=== PATIENT | female | born 1930 | race Caucasian/White ===

== ENCOUNTER 2018-05-06 15:16 | Inpatient (IN) | payer OTHER ==
[~2018-05-06] VITALS: Ht 170.2 cm; Wt 56.0 kg
[~2018-05-06 15:16] MED LIST: ACETAMINOPHEN500 M4 PO; AMITRIPTYLINE H25 M2 PO; AMLODIPINE BESYL5 M1 PO; ATORVASTATIN CA10 M1 PO; DOXAZOSIN MESYLA1 M1 PO; GABAPENTIN100 M2 PO; HYDROCHLOROTH12.5 M2 PO; KEFLEX250 M1 PO; METOPROLOL TART50 M1 PO; POTASSIUM CHLO20 ME2 PO; PRAVASTATIN SOD40 M2 PO; PREDNISONE5 M1 PO; TOBRADEX EYE O3.5 GM OPH
[2018-05-06] MEDS ORDERED: STOOL SOFTENER100 M3 PO (15:32)
[2018-05-06] MEDS ORDERED: PROBIOTIC1 EACH PO (15:33)
--- NOTE | 2018-05-06 15:55 | ED AMS/SEIZURE/WEAK/DIZZY ---
History of Present Illness General Chief Complaint: Altered Mental Status Stated Complaint: BIBA AMS Source: patient, family, EMS Exam Limitations: confusion Vital Signs & Intake/Output Vital Signs & Intake/Output Vital Signs Date Time Temp Pulse Resp B/P B/P Pulse O2 O2 Flow FiO2 Mean Ox Delivery Rate 05/086 98.8 88 18 144/52 98 Room Air 05/08 2018 144/52 05/08 1457 97.3 91 20 112/60 96 05/08 0936 84 122/70 05/08 0936 83 122/70 05/08 0711 97.7 94 18 138/62 97 Room Air ED Intake and Output 05/08 0000 05/07 1200 Intake Total 780 225 Output Total 900 700 Balance -120 -475 Intake, IV 10 Intake, Oral 780 215 Output, Urine 900 700 Patient 121 lb Weight Weight Bed scale Measurement Method Allergies Coded Allergies: nitrofurantoin (DIARRHEA AND SYNCOPE 07/21/17) Reconcile Medications Amlodipine Besylate 5 MG TABLET 1 TAB PO DAILY HTN (Reported) Atorvastatin Calcium 10 MG TABLET 1 TAB PO DAILY CHOLESTEROL (Reported) Docusate Sodium (Stool Softener) 100 MG CAPSULE 1 CAP PO DAILY CONSTIPATION ( Reported) Doxazosin Mesylate 1 MG TABLET 1 TAB PO DAILY BP (Reported) Gabapentin 100 MG CAPSULE 1 CAP PO TID TREMORS (Reported) Hydrochlorothiazide 12.5 MG TABLET 1 TAB PO DAILY DIURETIC (Reported) Lactobacillus Acidophilus (Probiotic) 10 BILLION CELL CAPSULE 1 CAP PO DAILY GI (Reported) Metoprolol Tartrate 50 MG TABLET 1 TAB PO BID HTN (Reported) Potassium Chloride 20 MEQ TAB.ER.PRT 1 TAB PO DAILY SUPPLEMENT (Reported) Prednisone 5 MG TABLET 1 TAB PO DAILY PMR (Reported) Triage Note: PT BIBA FROM HOME FOR LETHARGY, AMS. PT LIVES ALONE, SON LAST SAW PT ON SUNDAY AND PT WAS "NORMAL". SON SAW PT TODAY AND PT WAS ONLY ALERT TO SELF. WAS UNABLE TO AMBULATE AND LETHARGIC PER SON. PT ARRIVES TO ED ALERT TO SELF ONLY. PT DENIES ANY FALLING. SON AT BEDSIDE. VSS. AWAITING PROVIDER EVAL. Triage Nurses Notes Reviewed? yes Onset: Gradual Duration: hour(s): Timing: unknown Injury Environment: home Severity: moderate HPI: 87-year-old female with history of hypertension, UTIs BIBA to ED for AMS. HPI is limited due to patient's confusion, HPI obtained from patient's son. Son states that he saw the patient Sunday night at which time she was in her usual state of health. Son states the patient called him this morning and was not making sense over the phone. Son went to the patient's house and she was confused, lethargic, could not get out of bed or walk. Patient walks with a walker at baseline and lives at home alone, she is independent. Son states that she sees Dr. Lutz regularly for frequent UTIs, the patient had asked her son to pick her up some urine cups for urine sample last week. The patient does endorse dysuria at this time. Son denies hx of recent fall. (Courtney Washington) Past History Travel History Traveled to [place] past 21 day No Medical History Any Pertinent Medical History? see below for history Neurological: tremors Cardiovascular: hypertension Musculoskeletal: osteoporosis Surgical History Surgical History: non-contributory Psychosocial History What is your primary language Sami Tobacco Use: Never used Family History Hx Contributory? No (Courtney Washington) Review of Systems Review of Systems Constitutional: Reports: see HPI. Genitourinary: Reports: see HPI. Comments ROS limited d/t patient's confusion (Courtney Washington) Physical Exam Physical Exam General Appearance: well developed/nourished, no apparent distress, alert, awake Head: atraumatic, normal appearance Eyes: Bilateral: normal appearance, PERRL, EOMI. Ears, Nose, Throat: normal pharynx, hearing grossly normal Neck: normal inspection, supple, full range of motion Respiratory: normal breath sounds, no respiratory distress, lungs clear Cardiovascular: regular rate/rhythm Gastrointestinal: normal bowel sounds, soft, non-tender, no organomegaly Back: normal inspection, normal range of motion Extremities: normal range of motion Neurologic/Psych: awake, alert, patient service specialist II-XII nml as tested, oriented to person and place, not time, +tremor of bilateral upper extremities Skin: intact, normal color, warm/dry Core Measures ACS in differential dx? Yes CVA/TIA Diagnosis No Sepsis Present: No Sepsis Focused Exam Completed? No (Courtney Washington) Progress Differential Diagnosis: arrythmia, anemia, CVA/stroke, dehydration, encephalitis , electrolyte imbalance, hypoglycemia, hypoxia, intracranial Hem., intracranial mass/tumor, pneumonia, sepsis, seizure disorder, subarachnoid Hem., UTI/pyelo Plan of Care: Orders Procedure Date/time Status PT Evaluate & Treat 05/08 UNK Active PT EVAL LOW COMPLEX 20 MIN 05/08 UNK Complete Straight Cath 05/08 UNK Active Current Medications Sig/Andrew Start time Last Medication Dose Stop Time Status Admin Ampicillin 500 MG Q6 05/09 0600 AC (Omnipen) Apixaban 2.5 MG BID 05/08 2100 AC 05/08 (Eliquis) 2018 Melatonin 5 MG AT BEDTIME PRN 05/08 1345 AC (Melatonin) Amlodipine Besylate 5 MG DAILY 05/07 0900 AC 05/08 (Norvasc) 0936 Atorvastatin Calcium 10 MG DAILY 05/07 0900 AC 05/08 (Lipitor) 0936 Doxazosin Mesylate 1 MG DAILY 05/07 0900 AC 05/08 (Cardura) 0936 Gabapentin 100 MG TID 05/07 0900 AC 05/08 (Neurontin) 2018 Metoprolol Tartrate 50 MG BID 05/07 0900 AC 05/08 (Lopressor) 2018 Potassium Chloride 20 MEQ DAILY 05/07 0900 AC 05/08 (K-Dur) 0936 Prednisone 5 MG DAILY 05/07 0900 AC 05/08 0936 Acetaminophen 650 MG Q8P PRN 05/06 2130 AC 05/08 (Tylenol) 2130 Laboratory Tests 05/08/18 0609: TSH 1.650 EKGs shows new onset atrial fibrillation. Heart rate has been less than 100. Labs are significant for a UTI. Patient's CT scan of head shows no acute abnormality, chest x-ray is stable, no acute pathology. Given the pages altered mental status with urine infection and atrial fibrillation trochars hospital stay for IV antibiotics, fluids, cardiology consult, telemetry monitoring, trend EKGs and troponins, follow-up with urine and blood cultures. His unlikely this patient will fully recover within 2 days. Spoke with degreasing solution reclaimer grinder set up operator gear tool Dr. Stuart. Will hold heparinization at this time given this patient's AMS. a fib may be related to UTI. Dr. Mendosa spoke with Dr. Thakur regarding this patient's telemetry admission. Diagnostic Imaging: Viewed by Me: Radiology Read, CT Scan. Discussed w/RAD: Radiology Read, CT Scan. Radiology Impression: PATIENT: JAYNA VANN PRESENT AGE: 87 PATIENT ACCOUNT NO: [id number] : [birth year] LOCATION: [facility] ORDERING PHYSICIAN: Courtney BERNAL SERVICE DATE: 05/06/18 EXAM TYPE: CAT - CT HEAD WO IV CONTRAST EXAMINATION: CT HEAD WITHOUT CONTRAST CLINICAL INFORMATION: Altered mental status COMPARISON: CT head 07/21/2017 TECHNIQUE: Contiguous axial imaging was performed from the skull base to vertex without intravenous administration of contrast. DLP: 619.49 mGy-cm FINDINGS: There is no evidence of acute intracranial hemorrhage or territorial infarction. No abnormal mass effect or midline shift is seen. Miller to white matter differentiation is well preserved. No extra-axial fluid collections are identified. There is atrophy with prominence of the ventricles and the sulci and hypodensity of the periventricular white matter due to chronic small vessel ischemic disease. There is vascular calcifications of the internal carotid arteries bilaterally. The osseous structures and soft tissues are normal. The mastoid air cells and visualized portions of the paranasal sinuses are well aerated. IMPRESSION: No acute intracranial pathology. DICTATED BY: Amador Freitas MD DATE/TIME DICTATED:1611 IT PROGRAMMER:STEVO DATE/TIME TRANSCRIBED:05/06/181611 CONFIDENTIAL, DO NOT COPY WITHOUT APPROPRIATE AUTHORIZATION. <Electronically signed in Other Vendor System> SIGNED BY: Amador Freitas MD 05/06/181627 CXR Impression: PATIENT: JAYNA VANN PRESENT AGE: 87 PATIENT ACCOUNT NO: [id number] : [birth year] LOCATION: [facility] ORDERING PHYSICIAN: Courtney BERNAL SERVICE DATE: 05/06/18 EXAM TYPE: RAD - XRY-CHEST XRAY, TWO VIEWS EXAMINATION: XR CHEST CLINICAL INFORMATION: Acute mental status change. Rule out pneumonia/effusion. COMPARISON: Chest x-ray dated 07/21/2017 and several older exams. TECHNIQUE: 2 views of the chest were obtained. FINDINGS : The cardiomediastinal silhouette is within normal limits in size. Calcification of the aortic arch is seen. Lungs bilaterally are symmetrically hyperinflated with thickening of the central airways and perihilar opacities seen, unchanged from prior studies when allowing for differences in technique. Findings are consistent with chronic obstructive lung disease. No focal consolidation, effusion or pneumothorax is seen. Diffuse osteopenia is noted with mild convex left thoracolumbar scoliosis. IMPRESSION: Findings are consistent with obstructive lung disease. No focal pneumonia or pleural effusion. DICTATED BY: Mary Goodson MD DATE/TIME DICTATED:05/06/181630 IT PROGRAMMER:STEVO DATE/TIME TRANSCRIBED:05/06/181630 CONFIDENTIAL, DO NOT COPY WITHOUT APPROPRIATE AUTHORIZATION. <Electronically signed in Other Vendor System> SIGNED BY: Mary Goodson MD 05/06/181636 Initial ED EKG: atrial fibrillation rate 95bpm, nonspecific ST changes Prior EKG: changed (07/21/17) (Courtney Washington) Departure Departure Disposition: STILL A PATIENT Condition: Stable Clinical Impression Primary Impression: New onset atrial fibrillation Secondary Impressions: Altered mental status Qualifiers: Altered mental status type: unspecified Qualified Code: R41.82 - Altered mental status, unspecified UTI (urinary tract infection) Qualifiers: Urinary tract infection type: acute cystitis Hematuria presence: without hematuria Qualified Code: N30.00 - Acute cystitis without hematuria Referrals: Osman Thakur MD (PCP/Family) Departure Forms: Customer Survey General Discharge Information Admission Note Spoke With: Osman Thakur MD Documentation of Exam: Documentation of any treatments & extenuating circumstances including Concerns Regarding Discharge (functional status, medication knowledge or non-compliance, living conditions, etc.) that warrant an admission rather than observation: [UTI with altered mental status requiring IV antibiotics, new onset atrial fibrillation according cardiology consult, telemetry monitoring, trend EKGs and troponins, follow-up with urine and blood cultures, premature discharge medically unsafe] (Courtney Washington) PA/WET PRESS TENDER Co-Sign Statement Statement: ED Attending supervision documentation- x I saw and evaluated the patient. I have also reviewed all the pertinent lab results and diagnostic results. I agree with the findings and the plan of care as documented in the PA's/WET PRESS TENDER's documentation. Altered mental status, lethargy with new onset afib, UTI [] I have reviewed the ED Record and agree with the PA's/WET PRESS TENDER's documentation. [] Additions or exceptions (if any) to the PAs/WET PRESS TENDER's note and plan are summarized below: [] (Korey OLIVIA,Chidi)
[2018-05-06 16:09] LABS: ABSOLUTE BASOPHIL COUNT 0 /CUMM (0.0-0.2); ABSOLUTE EOSINOPHIL COUNT 0 /CUMM (0.0-0.7); ABSOLUTE GRANULOCYTE CT 5.9 /CUMM (1.4-6.5); ABSOLUTE LYMPH COUNT 1.2 /CUMM (1.2-3.4); ABSOLUTE MONOCYTE COUNT 0.7 /CUMM (0.10-0.60); BASOPHIL % 0.3 % (0.0-2.0); EOSINOPHIL % 0.3 % (0-5); GRANULOCYTE % 74.9 % (42.2-75.2); HEMATOCRIT 44.2 % (37-47); MEAN CORPUSCULAR HGB 32.5 PG (27.0-31.0); MEAN CORPUSCULAR HGB CONC 33.7 G/DL (33.0-37.0); MEAN CORPUSCULAR VOLUME 96.5 FL (81.0-99.0); MEAN PLATELET VOLUME 6.8 FL (7.4-10.4); PLATELET COUNT 316 /CUMM (130-400); RBC DISTRIBUTION WIDTH 13.2 % (11.5-14.5); RED BLOOD CELL CT 4.59 /CUMM (4.20-5.40); WHITE BLOOD CELL COUNT 7.9 /CUMM (4.8-10.8)
--- NOTE | 2018-05-06 16:28 | CT SCAN REPORT ---
EXAMINATION: CT HEAD WITHOUT CONTRAST CLINICAL INFORMATION: Altered mental status COMPARISON: CT head 07/21/2017 TECHNIQUE: Contiguous axial imaging was performed from the skull base to vertex without intravenous administration of contrast. DLP: 619.49 mGy-cm FINDINGS: There is no evidence of acute intracranial hemorrhage or territorial infarction. No abnormal mass effect or midline shift is seen. Miller to white matter differentiation is well preserved. No extra-axial fluid collections are identified. There is atrophy with prominence of the ventricles and the sulci and hypodensity of the periventricular white matter due to chronic small vessel ischemic disease. There is vascular calcifications of the internal carotid arteries bilaterally. The osseous structures and soft tissues are normal. The mastoid air cells and visualized portions of the paranasal sinuses are well aerated. IMPRESSION: No acute intracranial pathology.
--- NOTE | 2018-05-06 16:37 | RADIOLOGY REPORT ---
EXAMINATION: XR CHEST CLINICAL INFORMATION: Acute mental status change. Rule out pneumonia/effusion. COMPARISON: Chest x-ray dated 07/21/2017 and several older exams. TECHNIQUE: 2 views of the chest were obtained. FINDINGS: The cardiomediastinal silhouette is within normal limits in size. Calcification of the aortic arch is seen. Lungs bilaterally are symmetrically hyperinflated with thickening of the central airways and perihilar opacities seen, unchanged from prior studies when allowing for differences in technique. Findings are consistent with chronic obstructive lung disease. No focal consolidation, effusion or pneumothorax is seen. Diffuse osteopenia is noted with mild convex left thoracolumbar scoliosis. IMPRESSION: Findings are consistent with obstructive lung disease. No focal pneumonia or pleural effusion.
[2018-05-06 16:51] LABS: PT 13.3 SEC (9.4-12.5); PTT 31 SEC (25-37)
--- NOTE | 2018-05-06 19:44 | History & Physical ---
General Information and HPI MD Statement: I have seen and personally examined JAYNA VANN and documented this H&P. The patient is a 87 year old F who presented with a patient stated chief complaint of []. Allergies/Medications Allergies: Coded Allergies: nitrofurantoin (DIARRHEA AND SYNCOPE 07/21/17) Home Med list Amlodipine Besylate 5 MG TABLET 1 TAB PO DAILY HTN (Reported) Atorvastatin Calcium 10 MG TABLET 1 TAB PO DAILY CHOLESTEROL (Reported) Docusate Sodium (Stool Softener) 100 MG CAPSULE 1 CAP PO DAILY CONSTIPATION ( Reported) Doxazosin Mesylate 1 MG TABLET 1 TAB PO DAILY BP (Reported) Gabapentin 100 MG CAPSULE 1 CAP PO TID TREMORS (Reported) Hydrochlorothiazide 12.5 MG TABLET 1 TAB PO DAILY DIURETIC (Reported) Lactobacillus Acidophilus (Probiotic) 10 BILLION CELL CAPSULE 1 CAP PO DAILY GI (Reported) Metoprolol Tartrate 50 MG TABLET 1 TAB PO BID HTN (Reported) Potassium Chloride 20 MEQ TAB.ER.PRT 1 TAB PO DAILY SUPPLEMENT (Reported) Prednisone 5 MG TABLET 1 TAB PO DAILY PMR (Reported) Past History Travel History Traveled to [place] past 21 day No Medical History Neurological: tremors Cardiovascular: hypertension Musculoskeletal: osteoporosis Surgical History Surgical History: non-contributory Assessment/Plan Assessment: HEAD CT: No acute intracranial pathology. CXR: Findings are consistent with obstructive lung disease. No focal pneumonia or pleural effusion. Core Measures/Misc (06/10) Sepsis (View protocol) If YES complete Sepsis Event Note If YES complete Sepsis Event Note
--- NOTE | 2018-05-06 20:23 | History & Physical ---
Zamzam Coates 05/06/182022: General Information and HPI History of Present Illness: Patient is a 87 year old female with past medical history of hypertension, recurrent UTIs who presented to ED when found by her sun to be disoriented and unable to get out of bed. Patient was in her usual state of health until 1230PM this afternoon 05/06/18 where her son noticed she was not able to get out of bed. Patient was described to be shaking at that time which is increased compared to her normal tremors. The son described the patient to be significantly disoriented from her baseline and states she is normally very sharp. Family membors stated she had possible slurring of speech at home but no facial droop or weakness noticed. Patient lives at home alone and is independent at baseline using a walker at home. No family history of strokes. Patient never used tobacoo or alcohol. Review of systems positive for chills, shaking, dizziness, dysuria and frequency. Otherwise, patient denied any chest pain, palpitations, shortness of breath, bowel or bladder incontinence, nausea or vomiting. Allergies/Medications Allergies: Coded Allergies: nitrofurantoin (DIARRHEA AND SYNCOPE 07/21/17) Home Med list Amlodipine Besylate 5 MG TABLET 1 TAB PO DAILY HTN (Reported) Atorvastatin Calcium 10 MG TABLET 1 TAB PO DAILY CHOLESTEROL (Reported) Docusate Sodium (Stool Softener) 100 MG CAPSULE 1 CAP PO DAILY CONSTIPATION ( Reported) Doxazosin Mesylate 1 MG TABLET 1 TAB PO DAILY BP (Reported) Gabapentin 100 MG CAPSULE 1 CAP PO TID TREMORS (Reported) Hydrochlorothiazide 12.5 MG TABLET 1 TAB PO DAILY DIURETIC (Reported) Lactobacillus Acidophilus (Probiotic) 10 BILLION CELL CAPSULE 1 CAP PO DAILY GI (Reported) Metoprolol Tartrate 50 MG TABLET 1 TAB PO BID HTN (Reported) Potassium Chloride 20 MEQ TAB.ER.PRT 1 TAB PO DAILY SUPPLEMENT (Reported) Prednisone 5 MG TABLET 1 TAB PO DAILY PMR (Reported) Past History Travel History Traveled to [place] past 21 day No Medical History Neurological: tremors Cardiovascular: hypertension Musculoskeletal: osteoporosis Surgical History Surgical History: non-contributory Past Family/Social History Psychosocial History Smoking Status: Never Smoked ETOH Use: denies use Review of Systems Review of Systems Constitutional: Denies: see HPI. Exam & Diagnostic Data Last 24 Hrs of Vital Signs/I&O Vital Signs Date Time Temp Pulse Resp B/P B/P Pulse O2 O2 Flow FiO2 Mean Ox Delivery Rate 05/06 1739 98.2 96 18 131/61 100 Room Air 05/06 1538 Room Air 05/06 1519 97.9 106 20 146/79 99 Room Air Intake & Output 05/06 1600 05/06 0800 05/06 0000 Intake Total Output Total Balance Patient 150 lb Weight Weight Estimated Measurement Method Physical Exam General Appearance Alert, confused, oriented to person, shaking/tremors Skin lower extremity chronic venous changes HEENT PERRLA, EOMI, Mucous Membr. moist/pink Neck Supple, No JVD, No thryomegaly Cardiovascular Regular Rate, Normal S1, Normal S2 Lungs Clear to Auscultation, Normal Air Movement Abdomen Normal Bowel Sounds, Soft, No Tenderness Neurological Normal Speech, Strength at 5/5 X4 Ext, Normal Tone, Sensation Intact, Cranial Nerves 3-12 NL, Reflexes 2+ Extremities No Clubbing, No Cyanosis, lower extremity venous changes/right extremity swelling > right; tender to palpation Vascular Normal Pulses, Pulses Symmetrical Last 24 Hrs of Labs/Jose: Laboratory Tests 05/06/18 1842: Lactic Acid Cancelled 05/06/18 1720: Urine Color YEL, Urine Clarity CLDY H, Urine pH 6.5, Ur Specific [place] 1.020, Urine Protein TRACE H, Urine Ketones 15 H, Urine Nitrite POS H, Urine Bilirubin NEG, Urine Urobilinogen 1.0, Ur Leukocyte Esterase LARGE H, Ur Microscopic SEDIMENT EXAMINED, Urine RBC 15-25 H, Urine WBC > 75 H, Ur Epithelial Cells OCCAS, Urine Bacteria PACKD H, Urine Hemoglobin SMALL H, Urine Glucose NEG 05/06/18 1627: PT 13.3 H, INR 1.22 H, APTT 31 05/06/18 1545: Anion Gap 10, Estimated GFR > 60, BUN/Creatinine Ratio 36.0 H, Glucose 114 H, Lactic Acid 1.4, Calcium 9.6, Total Bilirubin 1.0, AST 32, ALT 45, Alkaline Phosphatase 78, Troponin I 0.01, Total Protein 7.1, Albumin 4.3, Globulin 2.8, Albumin/Globulin Ratio 1.5, CBC w Diff NO MAN DIFF REQ, RBC 4.59, MCV 96.5, MCH 32.5 H, MCHC 33.7, RDW 13.2, MPV 6.8 L, Gran % 74.9, Lymphocytes % 15.2 L, Monocytes % 9.3, Eosinophils % 0.3, Basophils % 0.3, Absolute Granulocytes 5.9, Absolute Lymphocytes 1.2, Absolute Monocytes 0.7 H, Absolute Eosinophils 0, Absolute Basophils 0 Microbiology 05/06 1720 URINE ROUT: Urine Culture - RECD Diagnostic Data EKG Results Atrial Fibrillation 95, non specific T wave changes, QTC 473 CXR Results Obstructive lung disease, no PNA or pleural effusion Assessment/Plan Assessment: Patient is a 87 year old female with PMH of hypertension, recurrent UTIs, tremors who presented to ED with her son and daughter in law for altered mental status and lethargy. Patient noted to have increased confusion, dysuria and difficulty ambulating as compared to baseline. CT imaging on admission negative for any acute intracranial pathology. CXR demonstrates some obstructive lung disease. EKG found new onset Atrial Fibrillation 95. Positive UA with clinical symptoms of dysuria. EMERGENCY DEPARTMENT: Rocepnen X 1 + NS 1 L Plaster Whittler: Dr. Stuart spoken to - hold heparinization at this time given patients AMS - a-fib possibly related to HPI; Dr. Nair spoke with Dr. Thakur regarding patients telemetry admission Vitals: 97.9, 106, 20, 146/79, 99%RA EKG: Atrial fibrillation 95, QTC 473, nonspecific T wave changes Troponin: CBC: WBC: 7.9, Hgb: 14.9, Hct: 44.2, Plt: 316 Chemistry: Na: 136, K+ 3.3, Cl 99, CO2 27, BUN 18, Cr 0.5 UA: Cloudy, trace protein, 15 Ketones, Positive Nitrite, Large leukocyte esterases, WBC>75, Packed urine bacteria, small hemoglobin INR: 1.22, PT: 13.[address]: No acute intracranial pathology CXR: Findings are consistent with obstructive lung disease. No focal pneumonia or pleural effusion. PROBLEM LIST: 1. Altered Mental Status 2. New onset Atrial Fibrillation 3. Urinary Tract Infection 4. Hypertension ALTERED MENTAL STATUS * Admit to telemetry for further monitoring of any arrythmia/a-fib * CT head negative; consider MRI in AM to rule out stroke and possible AC for new onset a-fib * Continue ASA + Statin * Q4 neuro-checks * Carotid dopplers NEW ONSET A-FIB * Repeat EKG/Troponin in AM * Monitor on telemetry * Cardiology consultation in AM * CHADVASC score: 4; will wait for further recommendations for anticoauglation once stroke is ruled out URINARY TRACT INFECTION * Continue Rocephin; one dose given in ER * Monitor for fevers/CBC for leukocytosis HYPERTENSION * Continue home medications * Monitor Vitals Q shift Code Status: Full Code DVT PPx: Heparin SC Diet: Regular Diet As Ranked By This Provider Problem List: 1. New onset atrial fibrillation 2. UTI (urinary tract infection) Qualifiers Urinary tract infection type: acute cystitis Hematuria presence: without hematuria Qualified Code: N30.00 - Acute cystitis without hematuria 3. Altered mental status Qualifiers Altered mental status type: unspecified Qualified Code: R41.82 - Altered mental status, unspecified Core Measures/Misc (06/10) Acute Coronary Syndrome ACS Diagnosis: No Congestive Heart Failure Congestive Heart Failure Diagnosis No Cerebrovascular Accident CVA/TIA Diagnosis: No VTE (View Protocol) VTE Risk Factors Age>40 No Mechanical VTE Prophylaxis d/t N/A MechProphylax Ordered No VTE Pharm Prophylaxis d/t NA PharmProphylax ordered Sepsis (View protocol) Sepsis Present: No If YES complete Sepsis Event Note If YES complete Sepsis Event Note Sondra Baptiste 05/06/18 2138: Core Measures/Misc (06/10) Sepsis (View protocol) If YES complete Sepsis Event Note If YES complete Sepsis Event Note Resident Review Statement Resident Statement: examined this patient, discussed with international trade teacher, agreed with international trade teacher, discussed with family Other Findings: She is 87-year-old female with past medical history significant for hypertension , recurrent UTIs, tremors, was brought in by family with a chief complaint of increased lethargy, altered mental status this morning. Patient's son was present at bedside and stated that patient was doing well when she got up this morning, she made her breakfast/lunch and went to bed. When he saw the patient later in the afternoon around 12:30 PM, she was very confused, shaking and was unable to get out of bed. Son also reports that having slight slurring of speech at that time which improved in a matter of minutes. Patient has a history of recurrent UTIs and follows up with Dr. edwards regarding that. She is not on any maintenance antibiotics. Patient reported of burning micturition, increased frequency since past couple of days, and had subjective fever and chills. On review of system, patient reported dizziness, headache, slight dyspnea, palpitations when anxious, no chest pain or abdominal discomfort. Patient also reported pain in her right lower extremity that recently started. No recent travels. Patient lives alone at home by herself and is completely independent in her daily activities. Labs and vitals as above EKG done in ER was significant for new onset A. fib, heart rate 75, nonspecific ST changes. UA was significant for greater than 75 WBCs and large leukocyte esterase. Problem list #1 urinary tract infection #2 new onset A. fib #4 increased lethargy and confusion #5 rule out stroke/TIA #6 history of hypertension #7 history of hyperlipidemia #8 rule out right lower extremity DVT Assessment and plan Patient will be admitted to telemetry floor for closer monitoring of her new onset A. fib. Dr. Baker has been called from ER we will place a formal cardiology consult. Patient is on metoprolol 50 twice a day at home, will continue the same. Her A. fib is rate controlled for now. Will defer to cardiology regarding anticoagulation once her stroke is ruled out. CT head is negative for any acute intracranial pathology, will get carotid ultrasound bilateral. Every 4 neuro checks. We'll start her on aspirin and statin. For UTI, patient got 1 dose of ceftriaxone in ER we'll continue. Patient will be continued on her home meds including HCTZ, prednisone 5 daily, K-Leilani 20 daily, amlodipine 5 daily, atorvastatin, doxazosin, gabapentin. Patient reports of new onset right lower extremity pain and swelling, will get unilateral Doppler lower extremity and follow-up. DVT prophylaxis subcutaneous heparin. Patient is DNR/DNI. Blaze OLIVIA,[facility] 05/07/18 0947: Core Measures/Misc (06/10) Sepsis (View protocol) If YES complete Sepsis Event Note If YES complete Sepsis Event Note Attending MD Review Statement Attending Statement Attending MD Statement: examined this patient, discuss w/resident/PA/SVP, agreed w/resident/PA/SVP, discussed with family, reviewed EMR data (avail), discussed with nursing, discussed with case mgmt, reviewed images, amended to note Attending Assessment/Plan: This is a lady with above-mentioned issues with history of polymyalgia rheumatica, on low-dose prednisone, recurrent UTI being followed by urology, history of hypertension, worsening performance status, osteoporosis in the past treated with Fosamax for few years, mild tremors, hyperlipidemia, hypertension on beta-colette, came in with Altered mental status probably related to urinary tract infection. No clinical evidence suggestive of stroke syndrome. 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
[2018-05-06 23:11] VITALS: BP 144/78
[2018-05-07 06:48] VITALS: BP 138/80
--- NOTE | 2018-05-07 07:20 | PN- Housestaff ---
Semaj Roa 05/07/18 0720: Subjective Follow-up For: AMS 2/2 UTI Afib Subjective: No events per nursing. Tele monitor shows Afib 88 - 115 Pt has no new complaints and is resting comfortably. She still has the left sided chest pain but it is less than yesterday, seems reproducible with movement. Review of Systems Constitutional: Reports: see HPI. Objective Last 24 Hrs of Vital Signs/I&O Vital Signs Date Time Temp Pulse Resp B/P B/P Pulse O2 O2 Flow FiO2 Mean Ox Delivery Rate 05/07 2211 97.7 98 18 150/60 97 Room Air 05/07 2038 76 128/70 05/07 1449 97.4 76 20 128/70 96 05/07 0839 142/50 05/07 0838 80 142/50 05/07 0800 Room Air Room Air 05/07 0648 97.8 80 18 138/80 97 Room Air Intake & Output 05/08 0800 05/08 0000 05/07 1600 Intake Total 300 480 Output Total 400 500 Balance -100 -20 Intake, Oral 300 480 Output, Urine 400 500 Patient 121 lb Weight Weight Bed scale Measurement Method Physical Exam General Appearance: Alert, Cooperative, No Acute Distress HEENT: Atraumatic, EOMI Neck: No JVD Cardiovascular: Normal S1, Normal S2, Irregular rhythm, Diastolic Murmur Lungs: Clear to Auscultation Abdomen: Normal Bowel Sounds, Soft, No Tenderness Extremities: No Cyanosis, No Tenderness/Swelling, Chronic Venous Stasis Dermatitis Current Medications: Current Medications Sig/Andrew Start time Last Medication Dose Route Stop Time Status Admin Acetaminophen 650 MG Q8P PRN 05/06 2130 AC 05/07 PO 0226 Amlodipine Besylate 5 MG DAILY 05/07 900 AC 05/07 PO 0839 Apixaban 5 MG BID 05/07 2100 AC 05/07 PO 203 Aspirin 81 MG DAILY 05/07 900 DC 05/07 PO 0839 Atorvastatin Calcium 10 MG DAILY 05/07 900 AC 05/07 PO 837 Ceftriaxone Sodium 1,000 MG DAILY 05/07 900 AC 05/07 IV 0839 Doxazosin Mesylate 1 MG DAILY 05/07 900 AC 05/07 PO 0839 Gabapentin 100 MG TID 05/07 900 AC 05/07 PO 203 Hydrochlorothiazide 12.5 MG DAILY 05/07 900 DC 05/07 PO 0838 Metoprolol Tartrate 50 MG BID 05/07 900 AC 05/07 PO 2037 Potassium Chloride 20 MEQ DAILY 05/07 900 AC 05/07 PO 08 Prednisone 5 MG DAILY 05/07 900 AC 05/07 PO 08 Last 24 Hrs of Lab/Jose Results Last 24 Hrs of Labs/Mics: Laboratory Tests 05/07/18 0630: Anion Gap 11, Estimated GFR > 60, BUN/Creatinine Ratio 30.0 H, CBC w Diff NO MAN DIFF REQ, RBC 4.53, MCV 96.7, MCH 32.7 H, MCHC 33.8, RDW 13.3, MPV 6.9 L, Gran % 75.5 H, Lymphocytes % 14.2 L, Monocytes % 9.6 H, Eosinophils % 0.4, Basophils % 0.3, Absolute Granulocytes 5.9, Absolute Lymphocytes 1.1 L, Absolute Monocytes 0.8 H, Absolute Eosinophils 0, Absolute Basophils 0 Assessment/Plan Assessment: Pt is an 87-year-old female with history of hypertension, recurrent UTIs who presented the emergency room disoriented and unable to get out of bed. Her son noted that she was confused with possible tremors. She is normally very active, lives alone and able to perform her normal daily activities. In the ER she was found to have a urinary tract infection but was afebrile. After starting Rocephin she is more alert. # New onset Afib: Could be due to stress of UTI. Diastolic murmur suggestive of possible MR. - Metoprolol for rate control - Echocardiogram to assess left atrial size - [id number] of 4, so started on Eliquis 5 mg BID - DC aspirin - We will continue tele - TSH to R/O thyroid disorder # Altered Mental Status: Most likely 2/2 to UTI - Continue Abx #HTN - D/C Thiazide - Cont doxazosin Order Abd U/S to r/o other pathologies Cont gabapentin Cont steroids DNR/DNI DVT ppx Problem List: 1. Altered mental status 2. UTI (urinary tract infection) 3. New onset atrial fibrillation Pain Ratin Pain Location: NA Pain Goal: Remain pain free Pain Plan: Per pathway Tomorrow's Labs & Rationales: None Osman Thakur MD 05/07/18 1013: Attending MD Review Statement Attending Statement Attending MD Statement: examined this patient, discuss w/resident/PA/NEWSCAST DIRECTOR, agreed w/resident/PA/NEWSCAST DIRECTOR, discussed with family, reviewed EMR data (avail), discussed with nursing, discussed with case mgmt, reviewed images, amended to note Attending Assessment/Plan: General Appearance Alert, confused, oriented to person, shaking/tremors Skin lower extremity chronic venous changes HEENT PERRLA, EOMI, Mucous Membr. moist/pink Neck Supple, No JVD, No thryomegaly Cardiovascular Regular Rate, Normal S1, Normal S2 Lungs Clear to Auscultation, Normal Air Movement Abdomen Normal Bowel Sounds, Soft, No Tenderness Neurological Normal Speech, Strength at 5/5 X4 Ext, Normal Tone, Sensation Intact, Cranial Nerves 3-12 NL, Reflexes 2+ Extremities No Clubbing, No Cyanosis, lower extremity venous changes/right extremity swelling > right; tender to palpation Vascular Normal Pulses, Pulses Symmetrical This is a lady with above-mentioned issues with history of polymyalgia rheumatica, on low-dose prednisone, recurrent UTI being followed by urology, history of hypertension, worsening performance status, osteoporosis in the past treated with Fosamax for few years, mild tremors, hyperlipidemia, hypertension on beta-colette, came in with * Resolving Altered mental status probably related to urinary tract infection. No clinical evidence suggestive of stroke syndrome. 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
[2018-05-07 07:42] LABS: ABSOLUTE BASOPHIL COUNT 0 /CUMM (0.0-0.2); ABSOLUTE EOSINOPHIL COUNT 0 /CUMM (0.0-0.7); ABSOLUTE GRANULOCYTE CT 5.9 /CUMM (1.4-6.5); ABSOLUTE LYMPH COUNT 1.1 /CUMM (1.2-3.4); ABSOLUTE MONOCYTE COUNT 0.8 /CUMM (0.10-0.60); BASOPHIL % 0.3 % (0.0-2.0); EOSINOPHIL % 0.4 % (0-5); GRANULOCYTE % 75.5 % (42.2-75.2); HEMATOCRIT 43.8 % (37-47); MEAN CORPUSCULAR HGB 32.7 PG (27.0-31.0); MEAN CORPUSCULAR HGB CONC 33.8 G/DL (33.0-37.0); MEAN CORPUSCULAR VOLUME 96.7 FL (81.0-99.0); MEAN PLATELET VOLUME 6.9 FL (7.4-10.4); PLATELET COUNT 285 /CUMM (130-400); RBC DISTRIBUTION WIDTH 13.3 % (11.5-14.5); RED BLOOD CELL CT 4.53 /CUMM (4.20-5.40); WHITE BLOOD CELL COUNT 7.9 /CUMM (4.8-10.8)
--- NOTE | 2018-05-07 09:32 | Cons- Cardiology ---
General Information and HPI Consulting Request Date of Consult: 05/07/18 Requested By: Blaze OLIVIA,Osman Charles Reason for Consult: New onset atrial fibrillation Source of Information: patient Exam Limitations: poor historian History of Present Illness: The patient is an 87-year-old female with history of hypertension, recurrent UTIs who presented the emergency room disoriented and unable to get out of bed. Her son noted that she was confused with possible tremors. She is normally very active, lives alone and able to perform her normal daily activities. In the ER she was found to have a urinary tract infection but was afebrile. She is placed on Rocephin and is now more awake and alert. Upon further questioning she denies any prior cardiac history other than being told of the possible murmur many years ago. She has never seen a accounting representative. She denies chest pain or shortness of breath. Allergies/Medications Allergies: Coded Allergies: nitrofurantoin (DIARRHEA AND SYNCOPE 07/21/17) Home Med List: Amlodipine Besylate 5 MG TABLET 1 TAB PO DAILY HTN (Reported) Atorvastatin Calcium 10 MG TABLET 1 TAB PO DAILY CHOLESTEROL (Reported) Docusate Sodium (Stool Softener) 100 MG CAPSULE 1 CAP PO DAILY CONSTIPATION ( Reported) Doxazosin Mesylate 1 MG TABLET 1 TAB PO DAILY BP (Reported) Gabapentin 100 MG CAPSULE 1 CAP PO TID TREMORS (Reported) Hydrochlorothiazide 12.5 MG TABLET 1 TAB PO DAILY DIURETIC (Reported) Lactobacillus Acidophilus (Probiotic) 10 BILLION CELL CAPSULE 1 CAP PO DAILY GI (Reported) Metoprolol Tartrate 50 MG TABLET 1 TAB PO BID HTN (Reported) Potassium Chloride 20 MEQ TAB.ER.PRT 1 TAB PO DAILY SUPPLEMENT (Reported) Prednisone 5 MG TABLET 1 TAB PO DAILY PMR (Reported) Current Medications: Current Medications Sig/Andrew Start time Last Medication Dose Route Stop Time Status Admin Acetaminophen 650 MG Q8P PRN 05/06 2130 AC 05/07 PO 0226 Amlodipine Besylate 5 MG DAILY 05/07 900 AC 05/07 PO 08 Aspirin 81 MG DAILY 05/07 900 AC 05/07 PO 838 Aspirin 0 .STK-MED ONE 05/069 DC PO Aspirin 325 MG ONCE ONE 05/06 2145 DC 05/06 PO 05/06 2146 234 Atorvastatin Calcium 10 MG DAILY 05/07 900 AC 05/07 PO 0838 Ceftriaxone Sodium 1,000 MG DAILY 05/07 0900 AC 05/07 IV 0839 Ceftriaxone Sodium 0 .STK-MED ONE 05/06 1900 DC .ROUTE Ceftriaxone Sodium 1,000 MG ONCE ONE 05/06 1800 DC 05/06 IV 05/06 1801 1859 Doxazosin Mesylate 1 MG DAILY 05/07 900 AC 05/07 PO 0839 Gabapentin 100 MG TID 05/07 900 AC 05/07 PO 0838 Hydrochlorothiazide 12.5 MG DAILY 05/07 900 AC 05/07 PO 0838 Metoprolol Tartrate 50 MG BID 05/07 09 AC 05/07 PO 0838 Potassium Chloride 20 MEQ DAILY 05/07 900 AC 05/07 PO 0839 Potassium Chloride 0 .STK-MED ONE 05/06 2350 DC PO Potassium Chloride 40 MEQ ONCE ONE 05/06 2145 DC 05/06 PO 05/06 2146 2349 Prednisone 5 MG DAILY 05/07 900 AC 05/07 PO 0838 Sodium Chloride 1,000 ML BOLUS ONE 05/06 1800 DC 05/06 IV 05/06 1959 1859 Review of Systems Review of Systems: Eyes no blurred or double vision Ears no deafness or ringing Nose and throat no recurrent sinusitis Lungs per history of present illness Heart per history of present illness Abdomen no nausea vomiting Musculoskeletal occasional muscle and joint pains Psych history of depression Neuro history of tremors Endocrine no heat or cold intolerance Past History Travel History Traveled to [place] past 21 day No Medical History Neurological: tremors Cardiovascular: hypertension Musculoskeletal: osteoporosis Surgical History Surgical History: non-contributory Psychosocial History Where Do You Live? Home Smoking Status: Never Smoked ETOH Use: denies use Exam & Diagnostic Data Vital Signs and I&O Vital Signs Date Time Temp Pulse Resp B/P B/P Pulse O2 O2 Flow FiO2 Mean Ox Delivery Rate 05/07 0839 142/50 05/07 0838 80 142/50 05/07 0648 97.8 80 18 138/80 97 Room Air 05/06 2311 98.2 102 18 144/78 98 Room Air 05/06 2139 97.7 94 16 142/67 97 Room Air 05/06 1739 98.2 96 18 131/61 100 Room Air 05/06 1538 Room Air 05/06 1519 97.9 106 20 146/79 99 Room Air Intake & Output 05/07 1600 05/07 0800 05/07 0000 05/06 1600 05/06 0800 05/06 0000 Intake Total 125 1100 Output Total 700 900 Balance -575 200 Intake, IV 10 1000 Intake, Oral 115 100 Output, Urine 700 900 Patient 126 lb 150 lb Weight Weight Bed scale Estimated Measurement Method Physical Exam: Patient is a well-developed well-nourished female appearing in no acute distress HEENT is unremarkable Neck is supple there is no JVD Lungs are clear Heart irregular rhythm S1 and S2 are normal no gallops or rubs 1/6 to 2/6 diastolic murmur at the left sternal border Abdomen bowel sounds positive Extremities trace edema with chronic venous stasis changes Labs/Jose Results: Laboratory Tests 05/07 05/07 05/06 0630 0155 1842 Chemistry Sodium (137 - 145 mmol/L) 137 Potassium (3.5 - 5.1 mmol/L) 3.8 Chloride (98 - 107 mmol/L) 101 Carbon Dioxide (22 - 30 mmol/L) 24 Anion Gap (5 - 16) 11 BUN (7 - 17 mg/dL) 12 Creatinine (0.5 - 1.0 mg/dL) 0.4 L Estimated GFR (>60 ml/min) > 60 BUN/Creatinine Ratio (7 - 25 %) 30.0 H Lactic Acid Cancelled Troponin I (< 0.11 ng/ml) 0.03 Hematology CBC w Diff NO MAN DIFF REQ WBC (4.8 - 10.8 /CUMM) 7.9 RBC (4.20 - 5.40 /CUMM) 4.53 Hgb (12.0 - 16.0 G/DL) 14.8 Hct (37 - 47 %) 43.8 MCV (81.0 - 99.0 FL) 96.7 MCH (27.0 - 31.0 PG) 32.7 H MCHC (33.0 - 37.0 G/DL) 33.8 RDW (11.5 - 14.5 %) 13.3 Plt Count (130 - 400 /CUMM) 285 MPV (7.4 - 10.4 FL) 6.9 L Gran % (42.2 - 75.2 %) 75.5 H Lymphocytes % (20.5 - 51.1 %) 14.2 L Monocytes % (1.7 - 9.3 %) 9.6 H Eosinophils % (0 - 5 %) 0.4 Basophils % (0.0 - 2.0 %) 0.3 Absolute Granulocytes (1.4 - 6.5 /CUMM) 5.9 Absolute Lymphocytes (1.2 - 3.4 /CUMM) 1.1 L Absolute Monocytes (0.10 - 0.60 /CUMM) 0.8 H Absolute Eosinophils (0.0 - 0.7 /CUMM) 0 Absolute Basophils (0.0 - 0.2 /CUMM) 0 05/06 05/06 1720 1627 Coagulation PT (9.4 - 12.5 SEC) 13.3 H INR (0.90 - 1.19) 1.22 H APTT (25 - 37 SEC) 31 Urines Urine Color (YEL,AMB,STR) YEL Urine Clarity (CLEAR) CLDY H Urine pH (5.0 - 8.0) 6.5 Ur Specific [place] (1.001 - 1.035) 1.020 Urine Protein (NEG,<30 MG/DL) TRACE H Urine Ketones (NEG) 15 H Urine Nitrite (NEG) POS H Urine Bilirubin (NEG) NEG Urine Urobilinogen (0.1 - 1.0 EU/dl) 1.0 Ur Leukocyte Esterase (NEG) LARGE H Ur Microscopic SEDIMENT EXAMINED Urine RBC (0 - 5 /HPF) 15-25 H Urine WBC (0 - 2 /HPF) > 75 H Ur Epithelial Cells (NONE,FEW) OCCAS Urine Bacteria (NEG/NONE) PACKD H Urine Hemoglobin (NEG) SMALL H Urine Glucose (N MG/DL) NEG 05/06 1545 Chemistry Sodium (137 - 145 mmol/L) 136 L Potassium (3.5 - 5.1 mmol/L) 3.3 L Chloride (98 - 107 mmol/L) 99 Carbon Dioxide (22 - 30 mmol/L) 27 Anion Gap (5 - 16) 10 BUN (7 - 17 mg/dL) 18 H Creatinine (0.5 - 1.0 mg/dL) 0.5 Estimated GFR (>60 ml/min) > 60 BUN/Creatinine Ratio (7 - 25 %) 36.0 H Glucose (65 - 99 mg/dL) 114 H Lactic Acid (0.7 - 2.1 mmol/L) 1.4 Calcium (8.4 - 10.2 mg/dL) 9.6 Total Bilirubin (0.2 - 1.3 mg/dL) 1.0 AST (14 - 36 U/L) 32 ALT (9 - 52 U/L) 45 Alkaline Phosphatase (<127 U/L) 78 Troponin I (< 0.11 ng/ml) 0.01 Total Protein (6.3 - 8.2 g/dL) 7.1 Albumin (3.5 - 5.0 g/dL) 4.3 Globulin (1.9 - 4.2 gm/dL) 2.8 Albumin/Globulin Ratio (1.1 - 2.2 %) 1.5 Triglycerides (<150 mg/dL) 78 Cholesterol (<200 MG/DL) 151 LDL Cholesterol, Calc (65 - 129 mg/dL) 59 L HDL Cholesterol (40 - 60 mg/dL) 77 H Cholesterol/HDL Ratio (0.00 - 4.23 %) 2 Hematology CBC w Diff NO MAN DIFF REQ WBC (4.8 - 10.8 /CUMM) 7.9 RBC (4.20 - 5.40 /CUMM) 4.59 Hgb (12.0 - 16.0 G/DL) 14.9 Hct (37 - 47 %) 44.2 MCV (81.0 - 99.0 FL) 96.5 MCH (27.0 - 31.0 PG) 32.5 H MCHC (33.0 - 37.0 G/DL) 33.7 RDW (11.5 - 14.5 %) 13.2 Plt Count (130 - 400 /CUMM) 316 MPV (7.4 - 10.4 FL) 6.8 L Gran % (42.2 - 75.2 %) 74.9 Lymphocytes % (20.5 - 51.1 %) 15.2 L Monocytes % (1.7 - 9.3 %) 9.3 Eosinophils % (0 - 5 %) 0.3 Basophils % (0.0 - 2.0 %) 0.3 Absolute Granulocytes (1.4 - 6.5 /CUMM) 5.9 Absolute Lymphocytes (1.2 - 3.4 /CUMM) 1.2 Absolute Monocytes (0.10 - 0.60 /CUMM) 0.7 H Absolute Eosinophils (0.0 - 0.7 /CUMM) 0 Absolute Basophils (0.0 - 0.2 /CUMM) 0 Diagnostic Data EKG Results Atrial fibrillation nonspecific ST-T wave changes CXR Results IMPRESSION: Findings are consistent with obstructive lung disease. No focal pneumonia or pleural effusion. Assessment/Plan Assessment/Plan 1. New onset atrial fibrillation. This may be secondary to the stress of a urinary tract infection although she does have a diastolic murmur suggestive of possible mitral stenosis. 2. Altered mental status most likely secondary to urinary tract infection 3. Diastolic murmur possibly secondary to mitral stenosis 4. Hypertension by history Recommendations 1. Continue antibiotics for urinary tract infection 2. Continue metoprolol for rate control 3. Obtain an echocardiogram to assess her left atrial size and etiology to her murmur along with LV function 4. She is now awake and alert and has a CHADS2 Vasc score of 4 therefore I would recommend anticoagulation. Would start Eliquis 5 mg twice daily 5. Continue to monitor on telemetry 6. Would obtain a TSH to rule out thyroid disease Thank you for allowing [facility] to participate in the care of your patient. Consult Acknowledgment - Thank you for your consult request.
--- NOTE | 2018-05-07 09:47 | Admission Certification ---
Admission Certification Certification Statement - As attending physician, I certify that at the time of - admission, based on clinical presentation, severity of - symptoms, need for further diagnostic testing and - therapeutic interventions, and risk of adverse outcomes - without in-hospital treatment, in my clinical assessment, - this patient requires an acute hospital stay for a minimum - of two nights or longer. I have also considered psychsocial - factors such as support system, advanced age, financial - issues, cognitive issues, and failed out-patient treatments, - past re-admission history, safety of patient, and lack of - compliance as applicable. Specific rationale supporting this admission is: Delirium, new onset afib and uti
--- NOTE | 2018-05-07 11:04 | ULTRASOUND REPORT ---
EXAMINATION: US TRIPLEX LOWER EXTREMITY, RIGHT CLINICAL INFORMATION: Right leg swollen and painful. COMPARISON: None TECHNIQUE: Color-flow triplex imaging with spectral analysis and compression Doppler were performed on the lower extremity. FINDINGS: Respiratory variation, normal compression and augmented flow are noted throughout the lower extremity. The visualized common femoral vein, superficial femoral vein, profunda femoral vein, popliteal vein and midcalf peroneal and posterior tibial venous segments show no evidence of deep venous thrombosis. There is no Montanez's cyst. IMPRESSION: No evidence of deep venous thrombosis involving the lower extremity.
--- NOTE | 2018-05-07 13:40 | ULTRASOUND REPORT ---
EXAMINATION: DUPLEX BILATERAL CAROTID ULTRASOUND CLINICAL INFORMATION: Rest and carotid stenosis or dissection; risk factors include hypertension and hyperlipidemia. COMPARISON: None. TECHNIQUE: \H\B\N\ilateral carotid US was performed using real-time ultrasound and Doppler techniques (integrating B-mode 2D vascular images, Doppler spectral analysis and color flow Doppler imaging). These techniques were utilized to interrogate the extracranial carotid and vertebral arteries bilaterally. The degree of stenosis is based off criteria similar to NASCET. FINDINGS: Right side: 1. Mild hyperechoic plaque is seen in the ECA/ICA region. 2. The common carotid artery velocity is 63 cm/s. 3. The proximal internal carotid artery velocities are 43 cm/s systolic and 8 cm/s diastolic. 4. The external carotid artery velocity is 81 cm/s. Left side: 1. Mild hyperechoic plaque is seen in the ECA/ICA region. 2. The common carotid artery velocity is 72 cm/s. 3. The proximal internal carotid artery velocities are 67 cm/s systolic and 16 cm/s diastolic. 4. The external carotid artery velocity is 70 cm/s. ADDITIONAL FINDINGS: 1. The vertebral arteries show antegrade flow. IMPRESSION: 1. RIGHT: Minimal, nonhemodynamically significant stenosis of the proximal right internal carotid artery corresponding to a 0-49% stenosis by velocity criteria. 2. LEFT: Minimal, nonhemodynamically significant stenosis of the proximal left internal carotid artery corresponding to a 0-49% stenosis by velocity criteria. 3. Antegrade flow is seen via the bilateral vertebral arteries.
[2018-05-07 14:49] VITALS: BP 128/70
[2018-05-07 22:11] VITALS: BP 150/60
[2018-05-08 07:11] VITALS: BP 138/62
--- NOTE | 2018-05-08 07:22 | PN- Housestaff ---
Semaj Roa 05/08/18 0722: Subjective Follow-up For: Recurrent UTI Afib Subjective: No events per nursing. No events on tele. Remains in Afib. Pt has new complaint of right foot pain, but when examined nothing was remarkable. Otherwise pt has no new complaints. Review of Systems Constitutional: Reports: see HPI. Objective Last 24 Hrs of Vital Signs/I&O Vital Signs Date Time Temp Pulse Resp B/P B/P Pulse O2 O2 Flow FiO2 Mean Ox Delivery Rate 05/08 2236 98.8 88 18 144/52 98 Room Air 05/08 2018 144/52 05/08 1457 97.3 91 20 112/60 96 05/08 0936 84 122/70 05/08 0936 83 122/70 05/08 0711 97.7 94 18 138/62 97 Room Air Intake & Output 05/09 0805/09 0000 05/08 1600 Intake Total 50 480 Output Total Balance 50 480 Intake, Oral 50 480 Patient 123 lb Weight Weight Bed scale Measurement Method Physical Exam General Appearance: Alert, Cooperative, No Acute Distress HEENT: Atraumatic, EOMI Neck: No JVD Cardiovascular: Normal S1, Normal S2, Irregular rhythm, Diastolic Murmur Lungs: Clear to Auscultation Abdomen: Normal Bowel Sounds, Soft, No Tenderness Extremities: No Cyanosis, No Tenderness/Swelling, Chronic venous stasis dermatitis Current Medications: Current Medications Sig/Andrew Start time Last Medication Dose Route Stop Time Status Admin Acetaminophen 650 MG Q8P PRN 05/06 2130 AC 05/08 PO 2130 Amlodipine Besylate 5 MG DAILY 05/07 900 AC 05/08 PO 0936 Ampicillin 500 MG Q6 05/09 0605 DC 05/09 PO 05/09 0606 0545 Ampicillin 500 MG Q6 05/09 0600 CAN PO Apixaban 2.5 MG BID 05/08 2100 AC 05/08 PO 2018 Apixaban 5 MG BID 05/07 2100 DC 05/08 PO 0936 Atorvastatin Calcium 10 MG DAILY 05/07 900 AC 05/08 PO 0936 Ceftriaxone Sodium 1,000 MG DAILY 05/07 900 DC 05/08 IV 0935 Doxazosin Mesylate 1 MG DAILY 05/07 900 AC 05/08 PO 36 Gabapentin 100 MG TID 05/07 900 AC 05/08 PO 2017 Melatonin 5 MG AT BEDTIME PRN 05/08 1345 AC PO Metoprolol Tartrate 50 MG BID 05/07 900 AC 05/08 PO 2018 Nitrofurantoin 50 MG Q6 05/09 0630 AC PO Potassium Chloride 20 MEQ DAILY 05/07 900 AC 05/08 PO 0936 Prednisone 5 MG DAILY 05/07 900 AC 05/08 PO 0936 Last 24 Hrs of Lab/Jose Results Last 24 Hrs of Labs/Mics: Laboratory Tests 05/08/18 0609: TSH 1.650 Assessment/Plan Assessment: Pt is an 87-year-old female with history of hypertension, recurrent UTIs who presented the emergency room disoriented and unable to get out of bed. Her son noted that she was confused with possible tremors. She is normally very active, lives alone and able to perform her normal daily activities. In the ER she was found to have a urinary tract infection but was afebrile. After starting Rocephin she is more alert. # New onset Afib: Could be due to stress of UTI. Diastolic murmur suggestive of possible MR. 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 UTI (urinary tract infection) 2. New onset atrial fibrillation Pain Ratin Pain Location: NA Pain Goal: Remain pain free Pain Plan: Per pathway Tomorrow's Labs & Rationales: None Blaze OLIVIA,[facility] 05/08/18 1042: Objective Last 24 Hrs of Vital Signs/I&O Vital Signs Date Time Temp Pulse Resp B/P B/P Pulse O2 O2 Flow FiO2 Mean Ox Delivery Rate 05/08 09 84 122/70 05/08 0936 83 122/70 05/08 0711 97.7 94 18 138/62 97 Room Air 05/07 2211 97.7 98 18 150/60 97 Room Air 05/07 2038 76 128/70 05/07 1449 97.4 76 20 128/70 96 Intake & Output 05/08 1600 05/08 0800 05/08 0000 Intake Total 300 Output Total 100 400 Balance -100 -100 Intake, Oral 300 Output, Urine 100 400 Patient 121 lb Weight Weight Bed scale Measurement Method Attending MD Review Statement Attending Statement Attending MD Statement: examined this patient, discuss w/resident/PA/IP NETWORK ARCHITECT, agreed w/resident/PA/IP NETWORK ARCHITECT, discussed with family, reviewed EMR data (avail), discussed with nursing, discussed with case mgmt, reviewed images, amended to note Attending Assessment/Plan: General Appearance Alert, and oriented Skin lower extremity chronic venous changes HEENT PERRLA, EOMI, Mucous Membr. moist/pink Neck Supple, No JVD, No thryomegaly Cardiovascular Regular Rate, Normal S1, Normal S2 Lungs Clear to Auscultation, Normal Air Movement Abdomen Normal Bowel Sounds, Soft, No Tenderness Neurological Normal Speech, Strength at 5/5 X4 Ext, Normal Tone, Sensation Intact, Cranial Nerves 3-12 NL, Reflexes 2+ Extremities No Clubbing, No Cyanosis, lower extremity venous changes/right extremity swelling > right; tender to palpation Vascular Normal Pulses, Pulses Symmetrical This is a lady with above-mentioned issues with history of polymyalgia rheumatica, on low-dose prednisone, recurrent UTI being followed by urology, history of hypertension, worsening performance status, osteoporosis in the past treated with Fosamax for few years, mild tremors, hyperlipidemia, hypertension on beta-colette, came in with * Resolving Delirium with Altered mental status probably related to urinary tract infection. No clinical evidence suggestive of stroke syndrome. Carotid nil acute * New onset atrial fibrillation/mild diastolic murmur on anticoag and on rate control med * Recurrent urinary tract infection rule out other causes * Polymyalgia rheumatica on low-dose prednisone hence immunosuppressed * Hypertension * Hyperlipidemia * Essential tremor on gabapentin for many years * Osteoporosis * Worsening Performance status * Chronic lower extremity edema with venous stasis changes/neg dvt RECOMMENDATION Continue antibiotics, change to po abx for a total abx of seven day (unless his ultrasound is abnormal) Patient appears to be euvolemic Cont eloquis dc asa Continue steroids Continue beta-blockers Discontinue hydrochlorothiazide Continue gabapentin and doxazosin Ultrasound of the abdomen and pelvis to evaluate and rule out any other significant Will follow closely OOB to chair PT to see Pt is a candiate for rehab as she has worsening performance status Discussed with the son Pt wishes to be DNR and DNI
--- NOTE | 2018-05-08 10:31 | ECHOCARDIOGRAM REPORT ---
JAYNA VANN Age: 87 : 1930 Gender: F Exam Date: 05/08/2018 08:23 Exam Location: 1 [address] Ht (in): 67 Wt (lb): 126 BSA: 1.64 BP: 138 / 62 Ordering Physician: Semaj Roa MD Referring Physician: Semaj Roa MD Technologist: Dmitriy Schaeffer [facility] Room Number: [id number] Indications: Persistent atrial fibrillation Rhythm: Atrial fibrillation Technical Quality: Good FINDINGS Left Ventricle Normal global left ventricular size, wall thickness, systolic function with no obvious regional wall motion abnormalities. Normal left ventricular ejection fraction visually estimated at 60-65%. Right Ventricle Right ventricle not well visualized, grossly normal. Right Atrium Moderate right atrial dilatation. Normal right atrial pressure. Left Atrium Moderate left atrial dilatation. Mitral Valve Structurally normal mitral valve. Trace mitral regurgitation. No mitral stenosis. Mean gradient 1 mmHg. MVA by PHT 2.39 cm2. Aortic Valve Trileaflet aortic valve. Mildly thickened aortic valve without stenosis. No aortic regurgitation. Tricuspid Valve Structurally normal tricuspid valve. Mild tricuspid regurgitation. Right ventricular systolic pressure estimated at 30 mmHg. Pulmonic Valve Pulmonic valve not well visualized. Pericardium No pericardial effusion. Great Vessels Normal size aortic root and proximal ascending aorta. CONCLUSIONS Normal global left ventricular size, wall thickness, systolic function with no obvious regional wall motion abnormalities. Normal left ventricular ejection fraction visually estimated at 60-65%. Moderate right atrial dilatation. Normal right atrial pressure. Moderate left atrial dilatation. No mitral stenosis. Mean gradient 1 mmHg. MVA by PHT 2.[address] Sb Yuen (Electronically Signed) Final Date: 08 May 2018 10:29 MEASUREMENTS (Male / Female) Normal Values 2D ECHO LV Diastolic Diameter PLAX 4.3 cm 4.2 - 5.9 / 3.9 - 5.3 cm LV Systolic Diameter PLAX 2.5 cm 2.1 - 4.0 cm LV Fractional Shortening PLAX 41.9 % 25 - 46 % LV Ejection Fraction 2D Teich 73.1 % IVS Diastolic Thickness 0.9 cm LVPW Diastolic Thickness 0.9 cm LV Relative Wall Thickness 0.4 RV Internal Dim ED PLAX 2.9 cm 1.9 - 3.8 cm LVOT Diameter 1.7 cm Aortic Root Diameter 2.6 cm LA Systolic Diameter LX 3.2 cm 3.0 - 4.0 / 2.7 - 3.8 cm LA Volume 47.0 cm 18 - 58 / 22 - 52 cm Ascending Aorta Diameter 2.8 cm DOPPLER AV Peak Velocity 159.0 cm/s AV Peak Gradient 10.1 mmHg AV Mean Velocity 103.0 cm/s AV Mean Gradient 5.0 mmHg AV Velocity Time Integral 24.9 cm LVOT Peak Velocity 88.0 cm/s LVOT Peak Gradient 3.1 mmHg LVOT Mean Velocity 48.9 cm/s LVOT Mean Gradient 1.0 mmHg LVOT Velocity Time Integral 16.3 cm LVOT Stroke Volume 37.0 cm AV Area Cont Eq vti 1.5 cm AV Area Cont Eq pk 1.3 cm MV Peak Velocity 82.7 cm/s MV Peak Gradient 2.7 mmHg MV Mean Velocity 52.4 cm/s MV Mean Gradient 1.0 mmHg Mitral E Point Velocity 81.9 cm/s MV PHT Velocity 82.8 cm/s MV Deceleration Garfield 263.0 cm/s MV Pressure Half Time 94.4 ms MV Area PHT 2.3 cm MV Deceleration Time 250.0 ms TR Peak Velocity 255.0 cm/s TR Peak Gradient 26.0 mmHg Right Atrial Pressure 5.0 mmHg Pulmonary Artery Systolic Pressure 31.0 mmHg Right Ventricular Systolic Pressure 31.0 mmHg PV Peak Velocity 88.2 cm/s PV Peak Gradient 3.1 mmHg PV Mean Velocity 57.0 cm/s PV Mean Gradient 2.0 mmHg PV Velocity Time Integral 16.6 cm LV E' Lateral Velocity 11.9 cm/s Mitral E to LV E' Lateral Ratio 6.9 LV E' Septal Velocity 9.8 cm/s Mitral E to LV E' Septal Ratio 8.4
--- NOTE | 2018-05-08 11:07 | PN- Cardiology ---
Subjective Subjective: Patient seen at bedside. She denies chest pain, palpitations, lightheadedness/ dizziness, dyspnea. Objective Vital Signs and I&Os Vital Signs Date Time Temp Pulse Resp B/P B/P Pulse O2 O2 Flow FiO2 Mean Ox Delivery Rate 05/08 936 84 122/70 05/08 0936 83 122/70 05/08 0711 97.7 94 18 138/62 97 Room Air 05/07 2211 97.7 98 18 150/60 97 Room Air 05/07 2038 76 128/70 05/07 1449 97.4 76 20 128/70 96 Intake & Output 05/08 1600 05/08 0805/08 0000 05/07 1600 05/07 0800 05/07 0000 Intake Total 300 028 274 4016 Output Total 100 400 500 700 900 Balance -100 -100 -20 -575 200 Intake, IV 10 1000 Intake, Oral 300 480 115 100 Output, Urine 100 400 500 700 900 Patient 55.026 kg 57.153 kg Weight Weight Bed scale Bed scale Measurement Method Physical Exam: General: Elderly lady lying in bed, no apparent distress HEENT: NCAT, NO JVD Heart: s1s2, irregular rhythm not tachycardic, no MRG Lungs: CTA b/l Abd: soft, nt Ext: no peripheral edema, bilateral lower extremity chronic skin changes Current Medications: Current Medications Sig/Andrew Start time Last Medication Dose Route Stop Time Status Admin Acetaminophen 650 MG Q8P PRN 05/060 AC 05/07 PO 0226 Amlodipine Besylate 5 MG DAILY 05/07 900 AC 05/08 PO 0936 Apixaban 2.5 MG BID 05/08 2100 AC PO Apixaban 5 MG BID 05/07 2100 DC 05/08 PO 0936 Aspirin 81 MG DAILY 05/07 900 DC 05/07 PO 0839 Atorvastatin Calcium 10 MG DAILY 05/07 900 AC 05/08 PO 0936 Ceftriaxone Sodium 1,000 MG DAILY 05/07 900 AC 05/08 IV 0935 Doxazosin Mesylate 1 MG DAILY 05/07 900 AC 05/08 PO 0936 Gabapentin 100 MG TID 05/07 900 AC 05/08 PO 0936 Hydrochlorothiazide 12.5 MG DAILY 05/07 900 DC 05/07 PO 0838 Metoprolol Tartrate 50 MG BID 05/07 900 AC 05/08 PO 0936 Potassium Chloride 20 MEQ DAILY 05/07 900 AC 05/08 PO 0936 Prednisone 5 MG DAILY 05/07 900 AC 05/08 PO 0936 Results Last 48 Hrs of Labs/Mics: Laboratory Tests 05/08/18 0609: TSH 1.650 05/07/18 0630: Anion Gap 11, Estimated GFR > 60, BUN/Creatinine Ratio 30.0 H, CBC w Diff NO MAN DIFF REQ, RBC 4.53, MCV 96.7, MCH 32.7 H, MCHC 33.8, RDW 13.3, MPV 6.9 L, Gran % 75.5 H, Lymphocytes % 14.2 L, Monocytes % 9.6 H, Eosinophils % 0.4, Basophils % 0.3, Absolute Granulocytes 5.9, Absolute Lymphocytes 1.1 L, Absolute Monocytes 0.8 H, Absolute Eosinophils 0, Absolute Basophils 0 05/07/18 0155: Troponin I 0.03 05/06/18 1842: Lactic Acid Cancelled 05/06/18 1720: Urine Color YEL, Urine Clarity CLDY H, Urine pH 6.5, Ur Specific [place] 1.020, Urine Protein TRACE H, Urine Ketones 15 H, Urine Nitrite POS H, Urine Bilirubin NEG, Urine Urobilinogen 1.0, Ur Leukocyte Esterase LARGE H, Ur Microscopic SEDIMENT EXAMINED, Urine RBC 15-25 H, Urine WBC > 75 H, Ur Epithelial Cells OCCAS, Urine Bacteria PACKD H, Urine Hemoglobin SMALL H, Urine Glucose NEG 05/06/18 1627: PT 13.3 H, INR 1.22 H, APTT 31 05/06/18 1545: Anion Gap 10, Estimated GFR > 60, BUN/Creatinine Ratio 36.0 H, Glucose 114 H, Lactic Acid 1.4, Calcium 9.6, Total Bilirubin 1.0, AST 32, ALT 45, Alkaline Phosphatase 78, Troponin I 0.01, Total Protein 7.1, Albumin 4.3, Globulin 2.8, Albumin/Globulin Ratio 1.5, Triglycerides 78, Cholesterol 151, LDL Cholesterol, Calc 59 L, HDL Cholesterol 77 H, Cholesterol/HDL Ratio 2, CBC w Diff NO MAN DIFF REQ, RBC 4.59, MCV 96.5, MCH 32.5 H, MCHC 33.7, RDW 13.2, MPV 6.8 L, Gran % 74.9, Lymphocytes % 15.2 L, Monocytes % 9.3, Eosinophils % 0.3, Basophils % 0.3, Absolute Granulocytes 5.9, Absolute Lymphocytes 1.2, Absolute Monocytes 0.7 H, Absolute Eosinophils 0, Absolute Basophils 0 Microbiology 05/06 1720 URINE ROUT: Urine Culture - COMP ESCHERICHIA COLI Recent Imaging Studies: TTE 05/08/2018: Normal global left ventricular size, wall thickness, systolic function with no obvious regional wall motion abnormalities. Normal left ventricular ejection fraction visually estimated at 60-65%. Moderate right atrial dilatation. Normal right atrial pressure. Moderate left atrial dilatation. No mitral stenosis. Mean gradient 1 mmHg. MVA by PHT 2.39 cm2. Telemetry personally reviewed, A. fib with no RVR Assessment/Plan Assessment/Plan 1. New onset atrial fibrillation. 2. Altered mental status now resolved, most likely secondary to urinary tract infection 3. UTI on Abx 4. Hypertension by history The patient remains in atrial fibrillation, however she is not tachycardic. Blood pressure is normal. She is relatively asymptomatic. [id number] 4. Given her age and weight she should be on low-dose Eliquis 2.5mg po BID. Continue with metoprolol. Continue with hydrochlorothiazide. Echocardiogram showed normal LV function, no mitral stenosis. I had an extensive conversation with the patient and her son regarding the possibility of NEERAJ and cardioversion. The patient prefers medical management at this time. She says that she will revisit the possibility of cardioversion as an outpatient if she experiences symptoms or does not tolerate atrial fibrillation. Continue telemetry? Yes
--- NOTE | 2018-05-08 12:21 | ULTRASOUND REPORT ---
EXAMINATION: US RETROPERITONEAL COMPLETE (RENAL) CLINICAL INFORMATION: Chronic UTIs.. COMPARISON: Abdominal ultrasound 08/13/2012 TECHNIQUE: Real-time imaging of the kidneys and bladder. FINDINGS: RIGHT KIDNEY: 9.4 x 4.1 x 5.1 cm (SAG x AP x TRV). The kidney is normal in size, contour, and echogenicity. Renal cortical thickness is normal. No calculi or focal parenchymal lesions. No hydronephrosis. There is a 0.9 x 1.2 x 0.8 cm cyst in the lower pole of the right kidney. LEFT KIDNEY: 12.7 x 6.2 x 4.3 cm (SAG x AP x TRV). The kidney is normal in size, contour, and echogenicity. Renal cortical thickness is normal. No calculi or focal parenchymal lesions. No hydronephrosis. There is a large simple appearing cyst in the upper pole of the left kidney measuring 7.1 x 7.6 x 9.1 cm. BLADDER: Well-distended and normal. Left ureteral jet is demonstrated; right is not. Prevoid bladder volume is 300 mL. IMPRESSION: Bilateral renal cysts. No hydronephrosis or renal calculi.. Distended bladder.
[2018-05-08 14:57] VITALS: BP 112/60
--- NOTE | 2018-05-08 15:40 | Discharge Summary ---
Visit Information Visit Dates Admission Date: 05/06/18 Discharge Date: 05/09/18 Hospital Course Course Attending Physician: Osman Thakur MD Primary Care Physician: Osman Thakur MD Hospital Course: Pt is an 87-year-old female with history of hypertension, polymyalgia rheumatica , on low-dose prednisone, recurrent UTIs and osteoporosis in the past treated with Fosamax for few years, mild tremors, and hyperlipidemia, who presented to the emergency room disoriented and unable to get out of bed. Her son noted that she was confused with possible tremors. Patient was admitted to the telemetry floor for the management of following issues; 1. New onset atrial fibrillation 2. AMS likely 2/2 to UTI 3. History of hypertension 4. Hx of PMR on chronic steroids Patient was found to be in new-onset atrial fibrillation on admission which could be precipitated by her current UTI. Cardiology consult was obtained, her heart rate was controlled on her home dose of metoprolol which he was taking for hypertension. Her chads score was 4 so she was started on Eliquis 2.5 mg twice daily(low-dose given age and weight). TSH levels was normal. She was started on ceftriaxone initially for UTI later switched to Ceftin for a total of 14 days after the culture and sensitivities were back. Renal ultrasound was to obtain to rule out any urinary tract pathology which was only positive for atonic bladder.Bladder scan shwoed post void residue and patient was started on straight cath protocol. Hydrochlorothiazide was discontinued, with blood pressure remaining stable on doxazosin and metoprolol. Low-dose prednisone was continued along with rest of her home medications. Allergies: Coded Allergies: nitrofurantoin (DIARRHEA AND SYNCOPE 07/21/17) Significant Procedures: XRY-CHEST XRAY, TWO VIEWS IMPRESSION: Findings are consistent with obstructive lung disease. No focal pneumonia or pleural effusion. CT HEAD WO IV CONTRAST IMPRESSION: No acute intracranial pathology. ECHOCARDIOGRAM CONCLUSIONS Normal global left ventricular size, wall thickness, systolic function with no obvious regional wall motion abnormalities. Normal left ventricular ejection fraction visually estimated at 60-65%. Moderate right atrial dilatation. Normal right atrial pressure. Moderate left atrial dilatation. No mitral stenosis. Mean gradient 1 mmHg. MVA by PHT 2.39 cm2. [id number] DOPPLER IMPRESSION: 1. RIGHT: Minimal, nonhemodynamically significant stenosis of the proximal right internal carotid artery corresponding to a 0-49% stenosis by velocity criteria. 2. LEFT: Minimal, nonhemodynamically significant stenosis of the proximal left internal carotid artery corresponding to a 0-49% stenosis by velocity criteria. 3. Antegrade flow is seen via the bilateral vertebral arteries. US-UNILATERAL VENOUS DOPPLER IMPRESSION: No evidence of deep venous thrombosis involving the lower extremity. US-RENAL/KIDNEY IMPRESSION: Bilateral renal cysts. No hydronephrosis or renal calculi.. Distended bladder. Disposition Summary Disposition Principal Diagnosis: New onset Afib AMS likely 2/2 UTI Additional Diagnosis: Hx of HTN, HLD Hx pf PMR Discharge Disposition: SNF Discharge Instructions General Discharge Information Code Status: Do Not Resucitate/Intubat Patient's Diet: Heart Healthy Patient's Activity: As tolerated Follow-Up Instructions/Appts: Please follow up with your PCP, and dissolver operator within a week after discharge. Straight Cath if Post Void residue greater than 200ml. Medications at Discharge Discharge Medications: Stop taking the following medications: Hydrochlorothiazide (Hydrochlorothiazide) 12.5 MG TABLET ORAL DAILY Qty = 90 Continue taking these medications: Prednisone (Prednisone) 5 MG TABLET 1 Tablet ORAL DAILY Qty = 90 Amlodipine Besylate (Amlodipine Besylate) 5 MG TABLET 1 Tablet ORAL DAILY Qty = 90 Metoprolol Tartrate (Metoprolol Tartrate) 50 MG TABLET 1 Tablet ORAL TWICE DAILY Qty = 180 Potassium Chloride (Potassium Chloride) 20 MEQ TAB.ER.PRT 1 Tablet ORAL DAILY Qty = 30 Atorvastatin Calcium (Atorvastatin Calcium) 10 MG TABLET 1 Tablet ORAL DAILY Qty = 90 Gabapentin (Gabapentin) 100 MG CAPSULE 1 Capsule ORAL THREE TIMES DAILY Qty = 90 Doxazosin Mesylate (Doxazosin Mesylate) 1 MG TABLET 1 Tablet ORAL DAILY Qty = 90 Docusate Sodium (Stool Softener) 100 MG CAPSULE 1 Capsule ORAL DAILY Lactobacillus Acidophilus (Probiotic) 10 BILLION CELL CAPSULE 1 Capsule ORAL DAILY Start taking the following new medications: Apixaban (Eliquis) 2.5 MG TABLET 1 Tablet ORAL TWICE DAILY Qty = 60 No Refills Cefuroxime Axetil (Cefuroxime) 250 MG TABLET 1 Tablet ORAL EVERY 12 HOURS Qty = 28 No Refills Polyethylene Glycol 3350 (Miralax) 17 GRAM/DOSE POWDER 17 Gram ORAL DAILY as needed for CONSTIPATION Qty = 1 No Refills Copies To: Sree OLIVIA,Melchor Reagan
[2018-05-08 22:36] VITALS: BP 144/52
--- NOTE | 2018-05-09 06:45 | Patient Discharge Instructions ---
Discharge Instructions General Discharge Information You were seen/treated for: Recurrent UTIs New onset Afib You had these procedures: Chest CT, venous Doppler lower extremities, chest x-ray, echocardiogram. Straight catheter for urinary retention. Watch for these problems: Fever, chills, burning with urination, or any symptoms of urinary tract infection. Chest pain, chest palpitations, dizziness, syncope, or any symptoms of atrial fibrillation. Special Instructions: Follow-up with urology in 1 week. Follow-up with cardiology in 1 week. Follow-up with Dr. Thakur in 1 week. Continue antibiotics for 14 days. Diet Continue normal diet: No Recommended Diet: Heart Healthy Activity Full Activity/No Limits: No Activity Self Limited: Yes Acute Coronary Syndrome Inclusion Criteria At DC or during hospital stay patient has or had the following: ACS DIAGNOSIS No Discharge Core Measures Meds if any: Prescribed or Continued at Discharge Meds if any: NOT Prescribed or Continued at Discharge Congestive Heart Failure Inclusion Criteria At DC or during hospital stay patient has or had the following: CHF DIAGNOSIS No Discharge Core Measures Meds if any: Prescribed or Continued at Discharge Meds if any: NOT Prescribed or Continued at Discharge Cerebrovascular accident Inclusion Criteria At DC or during hospital stay patient has or had the following: CVA/TIA Diagnosis No Discharge Core Measures Meds if any: Prescribed or Continued at Discharge Meds if any: NOT Prescribed or Continued at Discharge Venous thromboembolism Inclusion Criteria VTE Diagnosis No VTE Type NONE VTE Confirmed by (Test) NONE Discharge Core Measures - Per Current guidelines, there needs to be overlap - treatment for the first 5 days of Warfarin therapy. - If discharged on Warfarin prior to 5 days of - overlap therapy, the patient will need to be - assessed for post discharge needs including - *Post discharge parental anticoagulation - *Warfarin and/or parental anticoagulation education - *Follow up date to check INR post discharge At least 5 days overlap therapy as Inpatient No Meds if any: Prescribed or Continued at Discharge Note: Overlap Therapy is Warfarin and Anticoagulant Meds if any: NOT Prescribed or Continued at Discharge
[2018-05-09 07:37] VITALS: BP 132/68
--- NOTE | 2018-05-09 07:37 | PN- Housestaff ---
Flora Roaesh 05/09/18 0736: Subjective Follow-up For: UTI Afib Subjective: Patient seen and examined lying in bed comfortably. No events per nursing. No events per panel monitor. Patient complains of not moving her bowels in 2 days. She also complains of left foot pain. Otherwise she has no new symptoms or complaints. Review of Systems Constitutional: Reports: see HPI. Objective Last 24 Hrs of Vital Signs/I&O Vital Signs Date Time Temp Pulse Resp B/P B/P Pulse O2 O2 Flow FiO2 Mean Ox Delivery Rate 05/09 1421 98.2 83 14 118/68 95 Room Air 05/09 1000 Room Air Room Air 05/09 0809 91 130/68 05/09 0809 91 130/68 05/09 0737 98.1 82 18 132/68 98 Room Air 05/08 2236 98.8 88 18 144/52 98 Room Air 05/08 2018 144/52 Intake & Output 05/09 1600 05/09 0800 05/09 0000 Intake Total 480 150 50 Output Total 400 350 Balance 80 -200 50 Intake, Oral 480 150 50 Output, Urine 400 350 Patient 123 lb Weight Weight Bed scale Measurement Method Physical Exam General Appearance: Alert, Oriented X3, Cooperative, No Acute Distress HEENT: Atraumatic, EOMI Neck: Supple Cardiovascular: Normal S1, Normal S2 Lungs: Clear to Auscultation Abdomen: Normal Bowel Sounds, Soft, No Tenderness Extremities: No Cyanosis, No Edema, right foot tenderness near toe Current Medications: Current Medications Sig/Andrew Start time Last Medication Dose Route Stop Time Status Admin Acetaminophen 650 MG Q8P PRN 05/06 2130 AC 05/08 PO 2130 Amlodipine Besylate 5 MG DAILY 05/07 09 AC 05/09 PO 0809 Ampicillin 500 MG Q6 05/09 1200 CAN PO 05/09 1201 Ampicillin 500 MG Q6 05/09 0605 DC 05/09 PO 05/09 0606 0545 Ampicillin 500 MG Q6 05/09 0600 CAN PO Apixaban 2.5 MG BID 05/08 2100 AC 05/09 PO 0809 Atorvastatin Calcium 10 MG DAILY 05/07 0900 AC 05/09 PO 0809 Bisacodyl 10 MG ONCE ONE 05/09 1600 DC 05/09 RI 05/09 1601 1552 Cefuroxime Sodium 250 MG Q12 08/16 1049 AC 05/09 PO 1143 Docusate Sodium 100 MG DAILY NEEDED PRN 05/09 1045 AC PO Doxazosin Mesylate 1 MG DAILY 05/07 09 AC 05/09 PO 0809 Gabapentin 100 MG TID 05/07 900 AC 05/09 PO 1300 Melatonin 5 MG AT BEDTIME PRN 05/08 1345 AC PO Metoprolol Tartrate 50 MG BID 05/07 09 AC 05/09 PO 0809 Nitrofurantoin 50 MG Q6 05/09 0630 CAN PO Polyethylene Glycol 17 GM DAILY 05/09 0935 AC 05/09 PO 1045 Potassium Chloride 20 MEQ DAILY 05/07 900 AC 05/09 PO 0809 Prednisone 20 MG ONCE ONE 05/09 1200 DC 05/09 PO 05/09 1201 1253 Prednisone 5 MG DAILY 05/07 900 AC 05/09 PO 0809 Senna/Docusate Sodium 2 TAB ONCE ONE 05/09 1045 DC 05/09 PO 05/09 1046 1143 Assessment/Plan Assessment: Pt is an 87-year-old female with history of hypertension, recurrent UTIs who presented the emergency room disoriented and unable to get out of bed. Her son noted that she was confused with possible tremors. She is normally very active, lives alone and is able to perform her normal daily activities. In the ER she was found to have a urinary tract infection but was afebrile. After starting Rocephin she is more alert. She will be discharged STR today. # New onset Afib: Could be due to stress of UTI. 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 UTI (urinary tract infection) 2. New onset atrial fibrillation Pain Ratin Pain Location: Toe Pain Goal: Remain pain free Pain Plan: Her past Tomorrow's Labs & Rationales: None Blaze OLIVIA,Osman 05/09/18 1300: Objective Last 24 Hrs of Vital Signs/I&O Vital Signs Date Time Temp Pulse Resp B/P B/P Pulse O2 O2 Flow FiO2 Mean Ox Delivery Rate 05/09 1000 Room Air Room Air 05/09 0809 91 130/68 05/09 0809 91 130/68 05/09 0737 98.1 82 18 132/68 98 Room Air 05/08 2236 98.8 88 18 144/52 98 Room Air 05/08 2018 144/52 05/08 1457 97.3 91 20 112/60 96 Intake & Output 05/09 1600 05/09 0800 05/09 0000 Intake Total 150 50 Output Total 350 Balance -200 50 Intake, Oral 150 50 Output, Urine 350 Patient 123 lb Weight Weight Bed scale Measurement Method Attending MD Review Statement Attending Statement Attending MD Statement: examined this patient, discuss w/resident/PA/DISTRICT COURT JUSTICE, agreed w/resident/PA/DISTRICT COURT JUSTICE, discussed with family, reviewed EMR data (avail), discussed with nursing, discussed with case mgmt, reviewed images, amended to note Attending Assessment/Plan: Atrial fibrillation with ventricular rate around 90. Patient appears comfortable. Admits to no complaints of chest pain no unusual shortness of breath or palpitations. complains of sig pain in the foot left side Constipation General Appearance Alert, and oriented Skin lower extremity chronic venous changes HEENT PERRLA, EOMI, Mucous Membr. moist/pink Neck Supple, No JVD, No thryomegaly Cardiovascular Regular Rate, Normal S1, Normal S2 Lungs Clear to Auscultation, Normal Air Movement Abdomen Normal Bowel Sounds, Soft, No Tenderness Neurological Normal Speech, Strength at 5/5 X4 Ext, Normal Tone, Sensation Intact, Cranial Nerves 3-12 NL, Reflexes 2+ Extremities No Clubbing, No Cyanosis, lower extremity venous changes/right extremity swelling > right; tender to palpation Vascular Normal Pulses, Pulses Symmetrical This is a lady with above-mentioned issues with history of polymyalgia rheumatica, on low-dose prednisone, recurrent UTI being followed by urology, history of hypertension, worsening performance status, osteoporosis in the past treated with Fosamax for few years, mild tremors, hyperlipidemia, hypertension on beta-colette, came in with * Resolved Delirium with Altered mental status probably related to urinary tract infection. No clinical evidence suggestive of stroke syndrome. 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
--- NOTE | 2018-05-09 09:19 | PN- Cardiology ---
Subjective Subjective: Telemetry reviewed. Atrial fibrillation with ventricular rate around 90. Patient appears comfortable. Admits to no complaints of chest pain no unusual shortness of breath or palpitations. Objective Vital Signs and I&Os Vital Signs Date Time Temp Pulse Resp B/P B/P Pulse O2 O2 Flow FiO2 Mean Ox Delivery Rate 05/09 0809 91 130/68 05/09 0809 91 130/68 05/09 0737 98.1 82 18 132/68 98 Room Air 05/08 2236 98.8 88 18 144/52 98 Room Air 05/08 2018 144/52 05/08 1457 97.3 91 20 112/60 96 05/08 0936 84 122/70 05/08 0936 83 122/70 Intake & Output 05/09 0000 05/08 1600 05/08 0000 Intake Total 150 50 480 300 Output Total 350 100 400 Balance -200 50 480 -100 -100 Intake, Oral 150 50 480 300 Output, Urine 350 100 400 Patient 123 lb 121 lb Weight Weight Bed scale Bed scale Measurement Method Physical Exam: On general exam patient comfortable Head normocephalic atraumatic Eyes sclera anicteric conjunctiva showed no pallor extraocular muscles were normal [place] neck no jugular venous tension no thyroid masses no palpable nodes Chest lungs were clear bilaterally Heart irregular rhythm with a ventricular rate around 96. Abdomen soft no organomegaly bowel sounds normal Extremities no clubbing cyanosis or edema. Current Medications: Current Medications Sig/Andrew Start time Last Medication Dose Route Stop Time Status Admin Acetaminophen 650 MG Q8P PRN 05/06 2130 AC 05/08 PO 2130 Amlodipine Besylate 5 MG DAILY 05/07 09 AC 05/09 PO 0809 Ampicillin 500 MG Q6 05/09 1200 AC PO 05/09 1201 Ampicillin 500 MG Q6 05/09 0605 DC 05/09 PO 05/09 0606 0545 Ampicillin 500 MG Q6 05/09 0600 CAN PO Apixaban 2.5 MG BID 05/08 2100 AC 05/09 PO 0809 Apixaban 5 MG BID 05/07 2100 DC 05/08 PO 0936 Atorvastatin Calcium 10 MG DAILY 05/07 900 AC 05/09 PO 0809 Ceftriaxone Sodium 1,000 MG DAILY 05/07 09 DC 05/08 IV 0935 Doxazosin Mesylate 1 MG DAILY 05/07 900 AC 05/09 PO 0809 Gabapentin 100 MG TID 05/07 0900 AC 05/09 PO 0809 Melatonin 5 MG AT BEDTIME PRN 05/08 1345 AC PO Metoprolol Tartrate 50 MG BID 05/07 09 AC 05/09 PO 08 Nitrofurantoin 50 MG Q6 05/09 0630 CAN PO Potassium Chloride 20 MEQ DAILY 05/07 0900 AC 05/09 PO 0809 Prednisone 5 MG DAILY 05/07 09 AC 05/09 PO 0809 Results Last 48 Hrs of Labs/Mics: Laboratory Tests 05/08/18 0609: TSH 1.650 Assessment/Plan Assessment/Plan Continue present treatment from a cardiac standpoint. In summary this 87-year- old female has a following problems 1. New onset atrial fibrillation. 2. Altered mental status now resolved, most likely secondary to urinary tract infection 3. UTI on Abx 4. Hypertension by history Ventricular rate appears satisfactory average about 85. She appears comfortable. She is on Eliquis 2.5 mg twice a day to prevent cardioembolic phenomena. Continue telemetry? Yes
[2018-05-09] MEDS ORDERED: ELIQUIS2.5 M1 PO (11:04)
[2018-05-09] MEDS ORDERED: CEFUROXIME250 M1 PO (11:34)
[2018-05-09 14:21] VITALS: BP 118/68
--- NOTE | 2018-05-09 15:02 | RADIOLOGY REPORT ---
EXAMINATION: XR FOOT, LEFT CLINICAL INFORMATION: Pain 1st and 2nd toes. COMPARISON: None. TECHNIQUE: 4 views of the left foot. FINDINGS: Diffuse osteopenia is noted. Pes cavus is present along with flexion deformities of the toes. Degenerative changes are present at the DIP joints as well as in the metatarsal/tarsal joints. Spurring is noted on the undersurface of the calcaneus. No acute fracture, dislocation or bony destructive lesions are seen. IMPRESSION: Diffuse osteopenia, degenerative changes, pes cavus and flexion deformities.
[2018-05-09] MEDS ORDERED: MIRALAX119 GM PO (15:21)
[2018-05-09 18:25] VITALS: BP 118/68
[2018-05-09 19:20] VITALS: BP 118/68
== END 2018-05-09 19:30 | DRG 690 ==
LOC: ERH 15:16 → 1NO 17:50 → ERHI 17:50 → ENRESERV 20:26 → ENTRNSPT 21:21 → EDTRNSPT 21:32 → EDTRNSPTSTS 21:32 → 1NO 21:46 → CMPTRNSPT 21:54 → ENPENDDIS 05-09 16:16 → 1NO 05-09 19:30
PROVIDERS: Internal Medicine; Physician Assistant
DX: N39.0 Urinary tract infection, site not specified (principal); F05 Delirium due to known physiological condition; I48.91 Unspecified atrial fibrillation; M81.0 Age-related osteoporosis without current pathological fracture; I87.8 Other specified disorders of veins; M35.3 Polymyalgia rheumatica; I10 Essential (primary) hypertension; Z87.440 Personal history of urinary (tract) infections; Z66 Do not resuscitate; E78.5 Hyperlipidemia, unspecified; G25.0 Essential tremor
CPT/HCPCS: 1NSP; 36415; 36592; 71046; 73630-LT; 76775; 81001; 82436; 87086; 93005; 93010; 93306; 97161-GP; J0696; J3490; J7512